=== PATIENT | male | born 1945 | race Caucasian/White ===

== ENCOUNTER → 2017-10-17 | Outpatient (CLI) | payer OTHER | LOC: SUPIMAGING 10:36 | PROVIDERS: ATTEND Family Medicine | DX: M54.9 Dorsalgia, unspecified (principal) | CPT/HCPCS: 72100-PN ==

== ENCOUNTER → 2018-08-14 | Outpatient (CLI) | payer OTHER | LOC: SUPIMAGING 09:16 | PROVIDERS: ATTEND Family Medicine | DX: R06.00 Dyspnea, unspecified (principal); M50.320 Other cervical disc degeneration, mid-cervical region, unspecified level | CPT/HCPCS: 72040-PN ==